=== PATIENT | female | born 1965 | race Caucasian/White ===

== ENCOUNTER 2017-02-16 22:22 | Emergency (ER) | payer MEDICARE, MEDICAID ==
[~2017-02-16] VITALS: Ht 154.9 cm; Wt 74.8 kg
[~2017-02-16 22:22] MED LIST: ALBU2.5V38 IH; ALBU8.5H2; ALBU8.5H2 IH; ASPI-605 PO; CLON0.5T PO; COLE625T PO; FURO40TA5 PO; HYDR2TAB35 PO; IPRA0.2S6 NEB; LEVO500T90; METH5TAB2 PO; MONT10TA22 PO; MULT-24; OLAN2.5T3 PO; OMEG1CAP18 PO
[2017-02-16] MEDS ORDERED: FENT1PAT4 TOP (22:51)
[2017-02-16] MEDS ORDERED: ALBU8HFA4 INH (22:51)
[2017-02-16] MEDS ORDERED: HYDR-548 PO (22:51)
--- NOTE | 2017-02-16 23:50 | NUR ---
Patient states "I feel alot better now."
[2017-02-16] MEDS ORDERED: TETRACAINE HCL 0.5% OPHT DROP 2 ML BOTTLE ONE (23:54)
[2017-02-16] MEDS ORDERED: FLUORESCEIN SODIUM 1 MG STRIP ONE (23:54)
--- NOTE | 2017-02-17 00:01 | NUR ---
Patient discharged to home in stable conditon. Written and verbal after care instructions given. Patient verbalizes understanding of instructions. Walked out of ER with steady gait with no distress noted
[2017-02-17 00:02] VITALS: BP 138/85
[2017-02-17] MEDS ORDERED: FLUORESCEIN SODIUM 1 MG STRIP OP ONE (00:30)
[2017-02-17] MEDS ORDERED: TETRACAINE HCL 0.5% OPHT DROP 2 ML BOTTLE OP ONE (00:30)
== END 2017-02-17 00:05 | disposition home or self-care (01) ==
LOC: ER 22:22
DX: H20.9 Unspecified iridocyclitis (principal); K21.9 Gastro-esophageal reflux disease without esophagitis; F32.9 Major depressive disorder, single episode, unspecified; F41.9 Anxiety disorder, unspecified; F20.9 Schizophrenia, unspecified; F17.200 Nicotine dependence, unspecified, uncomplicated; J45.909 Unspecified asthma, uncomplicated; J44.9 Chronic obstructive pulmonary disease, unspecified; Z79.82 Long term (current) use of aspirin; Z88.8 Allergy status to other drugs, medicaments and biological substances; Z88.2 Allergy status to sulfonamides
CPT/HCPCS: 99283; A4663

== ENCOUNTER 2018-04-09 15:54 | Emergency (ER) | payer MEDICARE, MEDICAID ==
[~2018-04-09] VITALS: Ht 154.9 cm; Wt 72.6 kg
[~2018-04-09 15:54] MED LIST changes: -ALBU8.5H2; -ALBU8.5H2 IH; +ALBU8.5H8 IH; +ALBU8HFA4 INH; -ASPI-605 PO; -COLE625T PO; +COLE625T9 PO; +FENT1PAT4 TOP; -FURO40TA5 PO; +HYDR-548 PO; -HYDR2TAB35 PO; -LEVO500T90; -MULT-24
[2018-04-09] MEDS ORDERED: HYDROCODONE/APAP 10-325 MG TABLET PO ONE (17:00)
[2018-04-09] MEDS ORDERED: HYDROCODONE/APAP 10-325 MG TABLET ONE (17:04)
--- NOTE | 2018-04-09 17:06 | NUR ---
MSE COMPLETED, PT D/C'D HOME, ACI GIVEN. PT AMBULATED W/O DIFF/TOOK ALL BELONGINGS.
[2018-04-09 17:07] VITALS: BP 111/88
== END 2018-04-09 17:08 | disposition home or self-care (01) ==
LOC: ER 15:58
DX: M79.641 Pain in right hand (principal); M79.673 Pain in unspecified foot; J45.909 Unspecified asthma, uncomplicated; J44.9 Chronic obstructive pulmonary disease, unspecified; F17.200 Nicotine dependence, unspecified, uncomplicated; K21.9 Gastro-esophageal reflux disease without esophagitis; Z88.2 Allergy status to sulfonamides; Z88.8 Allergy status to other drugs, medicaments and biological substances; Z79.891 Long term (current) use of opiate analgesic; Z79.899 Other long term (current) drug therapy
CPT/HCPCS: 73120; A4663

== ENCOUNTER 2019-02-18 20:29 | Emergency (ER) | payer MEDICARE, MEDICAID ==
[~2019-02-18] VITALS: Ht 152.4 cm; Wt 81.6 kg
[~2019-02-18 20:29] MED LIST changes: +ACET-2154 PO; -ALBU8.5H8 IH; +CETI-102 PO; -COLE625T9 PO; -FENT1PAT4 TOP; +HYDR-4354 PO; -HYDR-548 PO; +IBUP-1957 PO; +METH10TA2 PO; +NALO25TA PO; -OMEG1CAP18 PO; +OMEP20TA20 PO; +TRAZ-214 PO
--- NOTE | 2019-02-18 20:39 | NUR ---
Medically cleared by Dr Mendez
[2019-02-18] MEDS ORDERED: BREX2TAB PO (20:53)
[2019-02-18] MEDS ORDERED: AMLO5TAB4 PO (20:53)
[2019-02-18] MEDS ORDERED: METH10TA2 PO (20:53)
--- NOTE | 2019-02-18 20:57 | NUR ---
DR. HELLER AT BEDSIDE FOR MSE.
[2019-02-18] MEDS ORDERED: LORAZEPAM 2 MG/1 ML VIAL IV ONE (21:00)
[2019-02-18] MEDS ORDERED: LORAZEPAM 2 MG/1 ML VIAL ONE (21:07)
[2019-02-18 21:49] VITALS: BP 147/74
--- NOTE | 2019-02-18 21:49 | NUR ---
Patient discharged to home in stable conditon. Written and verbal after care instructions given. Patient verbalizes understanding of instructions. PATIENT LEFT WITH STABLE GAIT.
== END 2019-02-18 21:50 | disposition home or self-care (01) ==
LOC: ER 20:31
DX: F41.9 Anxiety disorder, unspecified (principal); J44.9 Chronic obstructive pulmonary disease, unspecified; K21.9 Gastro-esophageal reflux disease without esophagitis; F17.290 Nicotine dependence, other tobacco product, uncomplicated; Z71.6 Tobacco abuse counseling; Z88.2 Allergy status to sulfonamides; Z88.8 Allergy status to other drugs, medicaments and biological substances; Z79.899 Other long term (current) drug therapy; Z79.1 Long term (current) use of non-steroidal anti-inflammatories (NSAID)
CPT/HCPCS: 96374; 99284; 99406; J2060; A4663

== ENCOUNTER 2019-03-03 08:50 | Emergency (ER) | payer MEDICARE, MEDICAID ==
[~2019-03-03] VITALS: Ht 152.4 cm; Wt 81.6 kg
[~2019-03-03 08:50] MED LIST changes: +AMLO5TAB4 PO; +BREX2TAB PO; -IBUP-1957 PO; -MONT10TA22 PO; -NALO25TA PO; -OLAN2.5T3 PO; -TRAZ-214 PO
[2019-03-03] MEDS ORDERED: LORA-259 PO (09:00)
--- NOTE | 2019-03-03 09:08 | NUR ---
Urine sent to lab...
--- NOTE | 2019-03-03 09:23 | NUR ---
called dr. huddleston and left a message per dr. shell request.
[2019-03-03 09:34] LABS: *BILIRUBIN,URIN NEGATIVE (NEGATIVE); *BLOOD, URINE 1+ (NEGATIVE); *CLARITY,URINE CLEAR (CLEAR); *COLOR,URINE YELLOW (YELLOW); *KETONES,URINE NEGATIVE (NEGATIVE); *UROBILINOGEN,URINE 0.2 E.U./dl (NORMAL); LEUKOCYTE ESTERASE ,URINE NEGATIVE (NEGATIVE); NITRITE, URINE NEGATIVE (NEGATIVE); UGLUCOSE NEGATIVE (NEGATIVE)
[2019-03-03 09:41] LABS: BACTERIA,URINE FEW /HPF (NONE SEEN); SQUAMOUS EPITHELIAL CELL,UR FEW /HPF (NONE SEEN); WBC,URINE 0-3 /HPF (0-3)
[2019-03-03 09:48] LABS: BASOPHILS # (AUTO) 0.1 K/uL (0.0-8.0); BASOPHILS % (AUTO) 0.7 % (0.0-2.0); EOSINOPHILS # (AUTO) 0.1 K/uL (0.0-0.7); EOSINOPHILS % (AUTO) 1.9 % (0.0-7.0); HEMATOCRIT 39.2 % (31.2-41.9); HEMOGLOBIN 13.3 g/dL (10.9-14.3); LYMPHOCYTES # (AUTO) 2.7 K/uL (20.0-40.0); LYMPHOCYTES % (AUTO) 36.5 % (20.5-51.5); MEAN CORPUSCULAR HEMOGLOBIN 31.6 uug (24.7-32.8); MEAN CORPUSCULAR HGB CONC 34 g/dL (32.3-35.6); MEAN CORPUSCULAR VOLUME 93.3 fL (75.5-95.3); MONOCYTES # (AUTO) 0.7 K/uL (2.0-10.0); MONOCYTES % (AUTO) 9.2 % (0.0-11.0); NEUTROPHILS # (AUTO) 3.8 K/uL (1.8-8.9); NEUTROPHILS % (AUTO) 51.7 % (38.5-71.5); PLATELET COUNT (AUTO) 243 K/uL (179-408); WHITE BLOOD COUNT (AUTO) 7.4 K/uL (3.8-11.8)
[2019-03-03 09:51] LABS: CREATININE 0.8 mg/dL (0.6-1.3); POTASSIUM 4.1 mmol/L (3.5-5.1)
[2019-03-03 09:57] LABS: BILIRUBIN,DIRECT 0.1 mg/dL (0.0-0.2); BILIRUBIN,TOTAL 0.2 mg/dL (0.2-1.0); TOTAL PROTEIN, SERUM 7.1 g/dL (6.4-8.2)
[2019-03-03] MEDS ORDERED: HYDROCODONE/APAP 10-325 MG TABLET ONE (10:15)
[2019-03-03] MEDS ORDERED: IV NORMAL SALINE 1000 ML BAG IV ONE (10:15)
[2019-03-03] MEDS ORDERED: HYDROCODONE/APAP 10-325 MG TABLET PO ONE (10:15)
[2019-03-03] MEDS ORDERED: SWABABLE VALVE TRANSFER SET EA MC ONE (10:58)
[2019-03-03] MEDS ORDERED: IOHEXOL 300MG/ML 100 ML INFUS..BTL ONE (10:58)
[2019-03-03] MEDS ORDERED: IV NORMAL SALINE 250 ML IV ONE (10:58)
--- NOTE | 2019-03-03 11:35 | NUR ---
Patient discharged to home in stable conditon. Written and verbal after care instructions given. Patient verbalizes understanding of instructions.PT WALKS IN STEADY GAIT. PT NOT DRIVING.
[2019-03-03 11:36] VITALS: BP 131/59
== END 2019-03-03 11:40 | disposition home or self-care (01) ==
LOC: ER 08:50
DX: R35.0 Frequency of micturition (principal); G89.4 Chronic pain syndrome; M54.9 Dorsalgia, unspecified; J44.9 Chronic obstructive pulmonary disease, unspecified; K21.9 Gastro-esophageal reflux disease without esophagitis; F17.200 Nicotine dependence, unspecified, uncomplicated; Z88.2 Allergy status to sulfonamides; Z88.8 Allergy status to other drugs, medicaments and biological substances; Z79.899 Other long term (current) drug therapy
CPT/HCPCS: 36415; 74177; 80048; 80076; 81000; 81001; 83605; 84484; 85025; 87040 ×2; 87086; 99284; Q9967; 70030-TC; A4663; J7030; J7050

== ENCOUNTER 2020-06-19 08:49 | Emergency (ER) | payer MEDICARE, OTHER ==
[~2020-06-19] VITALS: Ht 152.4 cm; Wt 81.6 kg
[~2020-06-19 08:49] MED LIST changes: -CETI-102 PO; +CETI-90 PO; -CLON0.5T PO; +LORA-259 PO; -METH5TAB2 PO
[2020-06-19] MEDS ORDERED: predniSONE 50 MG TABLET ONE (09:10)
[2020-06-19] MEDS ORDERED: predniSONE 50 MG TABLET PO ONE (09:15)
--- NOTE | 2020-06-19 09:25 | NUR ---
Patient discharged to home in stable condition. Written and verbal after care instructions given. Patient verbalizes understanding of instructions. Stressed follow up or return to ER for worsening s/s.pt walks in steady gait.
== END 2020-06-19 09:29 | disposition home or self-care (01) ==
LOC: ER 08:49
DX: J45.901 Unspecified asthma with (acute) exacerbation (principal); R05 Cough; Z20.828 Contact with and (suspected) exposure to other viral communicable diseases; G89.4 Chronic pain syndrome; K21.9 Gastro-esophageal reflux disease without esophagitis; J44.9 Chronic obstructive pulmonary disease, unspecified; Z88.2 Allergy status to sulfonamides; F17.200 Nicotine dependence, unspecified, uncomplicated; E66.9 Obesity, unspecified; Z68.35 Body mass index [BMI] 35.0-35.9, adult; Z79.899 Other long term (current) drug therapy; Z79.891 Long term (current) use of opiate analgesic
CPT/HCPCS: 71045; 99284; J7512; U0003; A4663

== ENCOUNTER 2020-08-01 20:34 | Inpatient (IN) | payer MEDICARE, OTHER ==
[~2020-08-01] VITALS: Ht 152.4 cm; Wt 81.6 kg
[~2020-08-01 20:34] MED LIST changes: +PRED20TA PO
[2020-08-01] MEDS ORDERED: IPRATROPIUM BROMIDE 0.5 MG/2.5 ML NEBU NEB ONE (21:00)
[2020-08-01] MEDS ORDERED: methylPREDNISolone SOD SUCC 125 MG/2 ML VIAL IV ONE (21:00)
[2020-08-01] MEDS ORDERED: ALBUTEROL SULFATE 2.5 MG/3 ML NEBU NEB ONE (21:00)
[2020-08-01] MEDS ORDERED: MAGNESIUM SULFATE 2 GM in IV DEXTROSE 5% 100 ML IV ONE (21:00)
[2020-08-01] MEDS ORDERED: ALBUTEROL SULFATE 2.5 MG/3 ML NEBU ONE (21:03)
[2020-08-01] MEDS ORDERED: ALBUTEROL SULFATE 2.5 MG/ 0.5 ML NEBU ONE (21:03)
[2020-08-01] MEDS ORDERED: IPRATROPIUM BROMIDE 0.5 MG/2.5 ML NEBU ONE (21:03)
[2020-08-01] MEDS ORDERED: methylPREDNISolone SOD SUCC 125 MG/2 ML VIAL ONE (21:08)
[2020-08-01] MEDS ORDERED: MAGNESIUM SULFATE/D5W 200 ML ONE (21:08)
[2020-08-01 21:12] LABS: BASOPHILS # (AUTO) 0.1 K/uL (0.0-8.0); BASOPHILS % (AUTO) 0.8 % (0.0-2.0); EOSINOPHILS # (AUTO) 0.1 K/uL (0.0-0.7); EOSINOPHILS % (AUTO) 1.1 % (0.0-7.0); HEMOGLOBIN 13.7 g/dL (10.9-14.3); LYMPHOCYTES # (AUTO) 3.8 K/uL (20.0-40.0); LYMPHOCYTES % (AUTO) 28.9 % (20.5-51.5); MEAN CORPUSCULAR HEMOGLOBIN 32.5 uug (24.7-32.8); MEAN CORPUSCULAR HGB CONC 34 g/dL (32.3-35.6); MEAN CORPUSCULAR VOLUME 95.2 fL (75.5-95.3); MONOCYTES % (AUTO) 7.8 % (0.0-11.0); NEUTROPHILS # (AUTO) 8.1 K/uL (1.8-8.9); NEUTROPHILS % (AUTO) 61.4 % (38.5-71.5); PLATELET COUNT (AUTO) 280 K/uL (179-408); WHITE BLOOD COUNT (AUTO) 13.2 K/uL (3.8-11.8)
[2020-08-01 21:13] LABS: CREATININE 0.9 mg/dL (0.6-1.3); POTASSIUM 3.7 mmol/L (3.5-5.1)
[2020-08-01] MEDS ORDERED: LANS30CA54 PO (21:20)
[2020-08-01] MEDS ORDERED: HYDR-4354 PO (21:20)
[2020-08-01] MEDS ORDERED: MONT10TA22 PO (21:20)
[2020-08-01] MEDS ORDERED: CLON0.5T PO (21:20)
[2020-08-02 00:30] VITALS: BP 151/65
[2020-08-02] MEDS ORDERED: MAGNESIUM HYDROXIDE 30 ML LIQUID UDC PO PRN (01:30)
[2020-08-02] MEDS ORDERED: ONDANSETRON 4 MG/2 ML VIAL IV PRN (01:30)
[2020-08-02] MEDS ORDERED: ZOLPIDEM 5 MG TABLET PO PRN (01:30)
[2020-08-02] MEDS ORDERED: ALBUTEROL SULFATE 2.5 MG/3 ML NEBU IH PRN (02:15)
[2020-08-02] MEDS ORDERED: IPRATROPIUM BROMIDE 0.5 MG/2.5 ML NEBU NEB PRN (02:15)
[2020-08-02] MEDS ORDERED: ALBUTEROL SULFATE 8 GM HFA.AER.AD INH SCH (02:15)
[2020-08-02] MEDS ORDERED: AZITHROMYCIN 500 MG VIAL IV ONE (03:21)
[2020-08-02] MEDS: AZITHROMYCIN IV 500 MG in IV DEXTROSE 5% 250 ML IV SCH (04:09)
[2020-08-02 04:45] VITALS: BP 112/56
[2020-08-02] MEDS: methylPREDNISolone SOD SUCC 40 MG/ML VIAL IV SCH ×3 (06:07→21:24)
[2020-08-02] MEDS: PANTOPRAZOLE SODIUM 40 MG TABLET.DR PO SCH (06:07)
[2020-08-02] MEDS: ACETAMINOPHEN 325 MG TABLET PO SCH (07:55)
[2020-08-02] MEDS: CETIRIZINE HCL 10 MG TABLET PO SCH (07:56)
[2020-08-02] MEDS: HYDROCODONE/APAP 10-325 MG TABLET PO SCH ×3 (07:56→17:02)
[2020-08-02] MEDS: METHADONE HCL 10 MG TABLET PO SCH (07:57)
[2020-08-02] MEDS: CLONAZEPAM 0.5 MG TABLET PO SCH ×2 (07:57→17:02)
[2020-08-02] MEDS: NICOTINE 21 MG/24HR PATCH TD SCH (10:30)
[2020-08-02] MEDS ORDERED: NICOTINE 21 MG/24HR PATCH TD SCH (10:30)
[2020-08-02] MEDS: ENOXAPARIN SODIUM 40 MG/0.4 ML DISP.SYRIN SQ SCH (10:31)
[2020-08-02] MEDS: IPRATROPIUM BROMIDE 0.5 MG/2.5 ML NEBU NEB SCH ×3 (11:30→19:50)
[2020-08-02] MEDS: ALBUTEROL SULFATE 2.5 MG/3 ML NEBU NEB SCH ×3 (11:30→19:50)
[2020-08-02] MEDS: ACETAMINOPHEN 325 MG TABLET PO PRN (14:04)
[2020-08-02 15:01] VITALS: BP 122/68
[2020-08-02 20:00] VITALS: BP 131/65
[2020-08-02] MEDS ORDERED: BREXPIPRAZOLE 3 MG PO SCH (21:00)
[2020-08-02] MEDS ORDERED: METHADONE HCL 10 MG TABLET PO SCH (21:00)
[2020-08-02] MEDS ORDERED: MONTELUKAST SODIUM 10 MG TABLET PO SCH (21:00)
[2020-08-03] VITALS: BP 138/61
[2020-08-03] MEDS ORDERED: AZITHROMYCIN 500MG/ D5W 250ML IVPB **ER PYXIS ONLY IV ONE (01:46)
[2020-08-03] MEDS: AZITHROMYCIN IV 500 MG in IV DEXTROSE 5% 250 ML IV SCH (02:17)
[2020-08-03] MEDS: ACETAMINOPHEN 325 MG TABLET PO PRN (03:37)
[2020-08-03 04:00] VITALS: BP 169/81
[2020-08-03] MEDS: methylPREDNISolone SOD SUCC 40 MG/ML VIAL IV SCH (05:43)
[2020-08-03] MEDS: PANTOPRAZOLE SODIUM 40 MG TABLET.DR PO SCH (06:01)
[2020-08-03 06:03] LABS: BASOPHILS % (AUTO) 0.1 % (0.0-2.0); HEMATOCRIT 38.7 % (31.2-41.9); LYMPHOCYTES # (AUTO) 1.3 K/uL (20.0-40.0); LYMPHOCYTES % (AUTO) 8.7 % (20.5-51.5); MEAN CORPUSCULAR HEMOGLOBIN 32.4 uug (24.7-32.8); MEAN CORPUSCULAR HGB CONC 34 g/dL (32.3-35.6); MEAN CORPUSCULAR VOLUME 96.2 fL (75.5-95.3); MONOCYTES # (AUTO) 0.7 K/uL (2.0-10.0); MONOCYTES % (AUTO) 4.5 % (0.0-11.0); NEUTROPHILS # (AUTO) 13.3 K/uL (1.8-8.9); NEUTROPHILS % (AUTO) 86.7 % (38.5-71.5); PLATELET COUNT (AUTO) 282 K/uL (179-408); RED BLOOD CELL COUNT(AUTO) 4.03 MIL/uL (3.63-4.92); WHITE BLOOD COUNT (AUTO) 15.4 K/uL (3.8-11.8)
[2020-08-03 06:13] LABS: CREATININE 0.7 mg/dL (0.6-1.3); MAGNESIUM 2.2 mg/dL (1.8-2.4); PHOSPHOROUS 3.1 mg/dL (2.5-4.9); POTASSIUM 4.2 mmol/L (3.5-5.1)
[2020-08-03] MEDS ORDERED: CLONIDINE HCL 0.1 MG TABLET PO PRN (06:15)
[2020-08-03] MEDS: HYDROCODONE/APAP 10-325 MG TABLET PO SCH ×2 (07:34→12:49)
[2020-08-03] MEDS: METHADONE HCL 10 MG TABLET PO SCH (07:34)
[2020-08-03] MEDS: CETIRIZINE HCL 10 MG TABLET PO SCH (07:34)
[2020-08-03] MEDS: NICOTINE 21 MG/24HR PATCH TD SCH (07:34)
[2020-08-03] MEDS: ACETAMINOPHEN 325 MG TABLET PO SCH (07:34)
[2020-08-03] MEDS: CLONAZEPAM 0.5 MG TABLET PO SCH (07:34)
[2020-08-03] MEDS: ENOXAPARIN SODIUM 40 MG/0.4 ML DISP.SYRIN SQ SCH (07:36)
[2020-08-03] MEDS: IPRATROPIUM BROMIDE 0.5 MG/2.5 ML NEBU NEB SCH ×2 (07:47→11:19)
[2020-08-03] MEDS: ALBUTEROL SULFATE 2.5 MG/3 ML NEBU NEB SCH ×2 (07:48→11:19)
[2020-08-03 08:15] VITALS: BP 154/66
[2020-08-03] MEDS ORDERED: predniSONE 20 MG TABLET PO SCH (18:00)
== END 2020-08-03 13:15 | disposition home or self-care (01) | DRG 192 ==
LOC: ER 20:36 → TELE3 23:15 → MEDSURG3 08-03 08:21
PROVIDERS: ADMIT Internal Medicine; ATTEND Internal Medicine
DX: J44.1 Chronic obstructive pulmonary disease with (acute) exacerbation (principal); Z86.718 Personal history of other venous thrombosis and embolism; G89.4 Chronic pain syndrome; F17.200 Nicotine dependence, unspecified, uncomplicated; F32.9 Major depressive disorder, single episode, unspecified; K21.9 Gastro-esophageal reflux disease without esophagitis; Z88.2 Allergy status to sulfonamides; Z79.891 Long term (current) use of opiate analgesic; F39 Unspecified mood [affective] disorder; F41.9 Anxiety disorder, unspecified; F43.10 Post-traumatic stress disorder, unspecified; Z91.09 Other allergy status, other than to drugs and biological substances; M54.32 Sciatica, left side; F20.9 Schizophrenia, unspecified
CPT/HCPCS: 36415; 70030-TC; 71045; 82785; 83735; 84100; 85025; 86140; 93005; 94640; 94664; A4663; G0378; J0456; J1650; J2405; J2920; J2930; J3475; J3590; J7040; J7060

== ENCOUNTER 2022-01-12 00:01 | Emergency (ER) | payer MEDICARE, OTHER ==
[~2022-01-12] VITALS: Ht 152.4 cm; Wt 83.9 kg
[~2022-01-12 00:01] MED LIST changes: -AMLO5TAB4 PO; +CLON0.5T PO; +LANS30CA54 PO; -LORA-259 PO; +METH-817 PO; -METH10TA2 PO; +MONT10TA22 PO; -OMEP20TA20 PO
--- NOTE | 2022-01-12 00:21 | NUR ---
PT BIB [facility] 881 FROM HOME C/O BLE PAIN AND COUGH, COVID VACCINATED. A/O X4, NO SOB OR LABORED BREATHING, AFEBRILE. DENIES CP/PRESSURE. NO N/V/D.
--- NOTE | 2022-01-12 00:26 | NUR ---
Sagar EDWARDS AT BEDSIDE, MSE IN PROGRESS.
[2022-01-12] MEDS ORDERED: CLINDAMYCIN PHOSPHATE IV 900 MG in IV DEXTROSE 5% 100 ML IV ONE (00:45)
[2022-01-12] MEDS ORDERED: CLINDAMYCIN 900MG/D5W 100ML IVPB **ER PYXIS ONLY IJ ONE (00:45)
[2022-01-12] MEDS ORDERED: CLIN300C12 PO ×2 (00:54→01:36)
[2022-01-12] MEDS ORDERED: HYDR-3980 PO ×2 (00:54→01:36)
[2022-01-12] MEDS ORDERED: CEPH500T PO ×2 (00:54→01:36)
[2022-01-12] MEDS ORDERED: HYDROMORPHONE HCL 2 MG TABLET PO ONE (01:00)
[2022-01-12 01:08] LABS: HEMATOCRIT 38.3 % (31.2-41.9); MEAN CORPUSCULAR HEMOGLOBIN 32.5 uug (24.7-32.8); MEAN CORPUSCULAR VOLUME 92.4 fL (75.5-95.3); PLATELET COUNT (AUTO) 270 K/uL (179-408)
[2022-01-12] MEDS ORDERED: HYDROMORPHONE HCL 2 MG TABLET ONE (01:08)
[2022-01-12 01:18] LABS: CREATININE 0.9 mg/dL (0.6-1.3); POTASSIUM 3.2 mmol/L (3.5-5.1)
[2022-01-12] MEDS ORDERED: POTASSIUM CHLORIDE 20 MEQ TAB.PRT.SR PO ONE (01:30)
[2022-01-12] MEDS ORDERED: POTASSIUM CHLORIDE 20 MEQ TAB.PRT.SR ONE (01:30)
--- NOTE | 2022-01-12 01:51 | NUR ---
US (MARIO) AT [facility].
--- NOTE | 2022-01-12 02:13 | NUR ---
Patient discharged to home in stable condition. Written and verbal after care instructions given. Patient verbalizes understanding of instructions. Stressed follow up or return to ER for worsening s/s. Steady gait, denies any pain/discomfort upon discharge. No changes in LOC. No SOB or labored breathing. Picked up by significant other.
[2022-01-12 02:17] VITALS: BP 146/86
== END 2022-01-12 02:18 | disposition home or self-care (01) ==
LOC: ER 00:44
DX: L03.116 Cellulitis of left lower limb (principal); L03.115 Cellulitis of right lower limb; R60.0 Localized edema; G89.4 Chronic pain syndrome; F17.210 Nicotine dependence, cigarettes, uncomplicated; G62.9 Polyneuropathy, unspecified; Z86.718 Personal history of other venous thrombosis and embolism; Z88.2 Allergy status to sulfonamides; J44.9 Chronic obstructive pulmonary disease, unspecified; F41.9 Anxiety disorder, unspecified; F32.A Depression, unspecified; Z79.899 Other long term (current) drug therapy; Z79.891 Long term (current) use of opiate analgesic
CPT/HCPCS: 36415; 80048; 85025; 87040 ×2; 93970; 96365; 99285; 99406; J3490; J7060; A4663

== ENCOUNTER 2022-01-22 03:24 | Emergency (ER) | payer MEDICARE, OTHER ==
[~2022-01-22] VITALS: Ht 152.4 cm; Wt 88.5 kg
[~2022-01-22 03:24] MED LIST changes: +CEPH500T PO; +CLIN300C12 PO; +HYDR-3980 PO
--- NOTE | 2022-01-22 03:27 | NUR ---
pt bib ra for c/o abd and loose stool.
[2022-01-22] MEDS ORDERED: IV NORMAL SALINE 1000 ML BAG IV ONE (03:45)
--- NOTE | 2022-01-22 03:47 | NUR ---
Dr. Pandya at bedside for MSE.
[2022-01-22] MEDS ORDERED: MORPHINE SULFATE 4 MG/1 ML DISP.SYRIN ONE ×2 (03:57→04:48)
[2022-01-22] MEDS ORDERED: MORPHINE SULFATE 4 MG/1 ML DISP.SYRIN IV ONE ×2 (04:00→04:45)
[2022-01-22 04:01] LABS: *BILIRUBIN,URIN NEGATIVE (NEGATIVE); *BLOOD, URINE 1+ (NEGATIVE); *CLARITY,URINE CLEAR (CLEAR); *COLOR,URINE YELLOW (YELLOW); *KETONES,URINE NEGATIVE (NEGATIVE); *UROBILINOGEN,URINE 0.2 E.U./dl (NORMAL); LEUKOCYTE ESTERASE ,URINE NEGATIVE (NEGATIVE); NITRITE, URINE NEGATIVE (NEGATIVE); UGLUCOSE NEGATIVE (NEGATIVE)
[2022-01-22 04:05] LABS: HEMATOCRIT 41.2 % (31.2-41.9); MEAN CORPUSCULAR HEMOGLOBIN 32.4 uug (24.7-32.8); MEAN CORPUSCULAR VOLUME 91.9 fL (75.5-95.3); PLATELET COUNT (AUTO) 308 K/uL (179-408)
[2022-01-22 04:06] LABS: BILIRUBIN,DIRECT 0.1 mg/dL (0.0-0.2); BILIRUBIN,TOTAL 0.3 mg/dL (0.2-1.0); CREATININE 0.8 mg/dL (0.6-1.3); POTASSIUM 3.7 mmol/L (3.5-5.1); TOTAL PROTEIN, SERUM 6.7 g/dL (6.4-8.2)
[2022-01-22 04:23] LABS: BACTERIA,URINE NONE SEEN /HPF (NONE SEEN); RBC,URINE 0-3 /HPF (0-3); SQUAMOUS EPITHELIAL CELL,UR FEW /HPF (NONE SEEN); WBC,URINE NONE SEEN /HPF (0-3)
[2022-01-22] MEDS ORDERED: METRONIDAZOLE 500 MG/NS 100 ML PIGGYBACK IV ONE (04:30)
[2022-01-22] MEDS ORDERED: METRONIDAZOLE 500 MG/NS 100ML 100 ML IV ONE (04:41)
[2022-01-22] MEDS ORDERED: IOHEXOL 300MG/ML 100 ML INFUS..BTL ONE (04:51)
[2022-01-22] MEDS ORDERED: IV NORMAL SALINE 250 ML IV ONE (04:52)
[2022-01-22] MEDS ORDERED: SWABABLE VALVE TRANSFER SET EA MC ONE (04:52)
--- NOTE | 2022-01-22 04:58 | NUR ---
pt taken for cat scan.
--- NOTE | 2022-01-22 05:14 | NUR ---
pt returned from cat scan.
[2022-01-22] MEDS ORDERED: METR500T PO (06:00)
--- NOTE | 2022-01-22 06:03 | NUR ---
call to DR. Frias manager salt for Dr. Pandya.
[2022-01-22] MEDS ORDERED: VANC125C5 PO (06:12)
[2022-01-22 06:17] VITALS: BP 140/80
--- NOTE | 2022-01-22 06:17 | NUR ---
Patient discharged to home in stable condition. Written and verbal after care instructions given. Patient verbalizes understanding of instructions. Stressed follow up or return to ER for worsening s/s.
== END 2022-01-22 06:18 | disposition home or self-care (01) ==
LOC: ER 03:28
DX: R10.9 Unspecified abdominal pain (principal); R19.7 Diarrhea, unspecified; F17.210 Nicotine dependence, cigarettes, uncomplicated; G89.4 Chronic pain syndrome; E66.9 Obesity, unspecified; Z68.38 Body mass index [BMI] 38.0-38.9, adult; J44.9 Chronic obstructive pulmonary disease, unspecified; G62.9 Polyneuropathy, unspecified; Z86.718 Personal history of other venous thrombosis and embolism; K21.9 Gastro-esophageal reflux disease without esophagitis; Z79.891 Long term (current) use of opiate analgesic
CPT/HCPCS: 36415; 74177; 80048; 80076; 81001; 83690; 85025; 96361; 96365; 96375; 96376; 99285; J2270 ×2; J3490; J7040; Q9967; A4663

== ENCOUNTER 2022-02-21 09:20 | Emergency (ER) | payer MEDICARE, OTHER ==
[~2022-02-21] VITALS: Ht 152.4 cm; Wt 88.5 kg
[~2022-02-21 09:20] MED LIST changes: +VANC125C5 PO
--- NOTE | 2022-02-21 09:25 | NUR ---
Patient ambulatory with walker, alert and oriented x4 with complaints of left leg redness. Denies nausea/vomiting,SOB, chest pain. Vitals stable.
--- NOTE | 2022-02-21 09:30 | NUR ---
MD at bedside, medical screening exam in progress.
[2022-02-21] MEDS ORDERED: CEphaleXIN 500 MG CAPSULE ONE (09:34)
[2022-02-21] MEDS ORDERED: OXYCODONE/APAP 5-325 MG TABLET ONE ×2 (09:34→09:35)
[2022-02-21] MEDS ORDERED: CEPH500C2 PO ×2 (09:34→10:28)
[2022-02-21] MEDS ORDERED: OXYC-133 PO ×2 (09:34→10:28)
[2022-02-21] MEDS: CEphaleXIN 500 MG CAPSULE PO ONE (09:38)
--- NOTE | 2022-02-21 09:39 | NUR ---
Per MD order, give percocet 5-325mg 2 tablets PO.
[2022-02-21] MEDS: OXYCODONE/APAP 5-325 MG TABLET PO ONE ×2 (09:41→09:44)
[2022-02-21 09:51] VITALS: BP 125/80
== END 2022-02-21 09:52 | disposition home or self-care (01) ==
LOC: ER 09:20
DX: I87.2 Venous insufficiency (chronic) (peripheral) (principal); L08.9 Local infection of the skin and subcutaneous tissue, unspecified; J44.9 Chronic obstructive pulmonary disease, unspecified; K21.9 Gastro-esophageal reflux disease without esophagitis; G89.29 Other chronic pain; M54.9 Dorsalgia, unspecified; F17.210 Nicotine dependence, cigarettes, uncomplicated; Z88.2 Allergy status to sulfonamides; Z88.8 Allergy status to other drugs, medicaments and biological substances; Z79.2 Long term (current) use of antibiotics; Z79.899 Other long term (current) drug therapy
CPT/HCPCS: A4663